=== PATIENT | male | born 1985 | race Caucasian/White ===

== ENCOUNTER → 2018-04-27 | Outpatient (CLI) | payer OTHER ==
[~2018-04-27] MED LIST: LIDOCAINE 1% 300 MG/30 ML SDV ONE
[2018-04-27 09:10] LABS: INR 1.01 (0.83-1.16); PROTIME(PATIENT) 13.5 SEC (12.0-15.0)
== END ==
LOC: FIMAGING 07:58
PROVIDERS: ATTEND Ophthalmology
DX: G93.2 Benign intracranial hypertension (principal)